=== PATIENT | male | born 1965 | race Caucasian/White ===

== ENCOUNTER → 2024-11-27 | Outpatient (CLI) | payer MEDICAID, SELFPAY ==
--- NOTE | 2024-11-27 11:00 | XR_ITS ---
Examination: Retroperitoneal ultrasound, complete Technique: Multiple high resolution grayscale images of the retroperitoneum obtained, including kidneys and bladder. Exam date and time:November 27, 2024 1114 hours INDICATIONS: Onset left-sided flank pain today FINDINGS: Right kidney 12.1 cm renal cortex 1.9 cm Left kidney 11.5 cm renal cortex 1.6 cm Mild left hydronephrosis Moderate bilateral renal parenchymal scar formation No bladder mass or bladder calculi Bladder prevoid volume 496 cc postvoid volume 7 cc Significant prostatomegaly 7.6 x 6.5 x 5.6 cm no prostate nodules IMPRESSION: Mild left hydronephrosis Significant prostatomegaly
== END | disposition home or self-care (01) ==
LOC: CDIM 11:01
PROVIDERS: PCP Nurse Practitioner Primary Care; Referring Provider Nurse Practitioner Primary Care; Visit Provider Nurse Practitioner Primary Care
DX: N13.30 Unspecified hydronephrosis (principal); N40.0 Benign prostatic hyperplasia without lower urinary tract symptoms; Z87.448 Personal history of other diseases of urinary system
CPT/HCPCS: 76770

== ENCOUNTER 2025-07-22 09:24 | Outpatient (RCR) | payer BC, SELFPAY ==
--- NOTE | 2025-07-22 09:41 | PT.OIERPT ---
PT OP Initial Eval Patient Information Outpatient Physical Therapy Treatment Date: 07/22/25 Visit Reasons: LUMBOSACRAL REGION/RADICULOPATHY Medical Diagnosis: M47.27 M41.80 Start of Care: 07/22/25 Date of Onset: 3 months ago Smoking Status Smoking Status: Never smoker Initial Assessment Subjective: Pt is 60 yr old greenlandic speaking male who reports onset of pain that radiates into the L LE down into the ankle x 3 months. He reports long Hx of LBP since 1998 attributed to disk hernia. Pt is limited with walking, bending, and lifting and working in agriculture. PMH: HTN, high cholesterol Imaging: Xrays with provider Pt goal: to get rid of the LBP and L LE pain Objective: Trunk ArOM: ? B SB 50% of normal with pain ? Extension: 20% with pain around L4-5, L5-S1 more L LE pain ? Flexion: 10 from floor with LBP ? B rotation: 60% with pain ? TTP: moderate paraspinals L5-S1 ? Neuro: B SLR: positive Assessment: ? Pt presents with trunk flexion and extension sensitivity and overlying myofascial pain ? and TTP around L5-S1 consistent with lower lumbar disc bulge(s) with radiculopathy. Pt not likely going to benefit from skilled therapy since he has more LE pain with trunk extension and that usually means the disk bulge is too large to benefit from therapy. Eval?followed by HEP printout. PT recommends further diagnostic imaging such as MRI of L/S. Short Term and Assisted Goals Eval and D/C Treatment Plan Eval and D/C Frequency and Duration: Eval only Certification Dates: 07/22/25 to 07/23/25 Procedure Charges OP PT Eval Mod Complex 30 minutes: Yes
== END 2025-08-11 23:59 | disposition home or self-care (01) ==
LOC: CPTX 09:24
PROVIDERS: PCP Nurse Practitioner; Referring Provider Nurse Practitioner; Visit Provider Nurse Practitioner
DX: M47.27 Other spondylosis with radiculopathy, lumbosacral region (principal); M41.80 Other forms of scoliosis, site unspecified; R26.2 Difficulty in walking, not elsewhere classified
CPT/HCPCS: 97162